=== PATIENT | female | born 1995 | race Hispanic/Latino ===

== ENCOUNTER 2023-11-15 00:32 | Emergency (ER) | payer OTHER ==
[~2023-11-15] VITALS: Ht 157.5 cm; Wt 99.8 kg
[2023-11-15] MEDS: KETOROLAC 15MG/ML VIAL (15MG/ML) IM STA (01:01)
[2023-11-15] MEDS ORDERED: NAPR-1192 PO (01:51)
[2023-11-15 01:57] VITALS: BP 148/69; PULSE 85; RESP 18; O2SAT 99
== END 2023-11-15 01:58 | disposition home or self-care (01) ==
LOC: EDH 00:32
DX: S93.402A Sprain of unspecified ligament of left ankle, initial encounter (principal); X50.1XXA Overexertion from prolonged static or awkward postures, initial encounter; Y93.89 Activity, other specified; Y92.89 Other specified places as the place of occurrence of the external cause; Y99.8 Other external cause status
CPT/HCPCS: 99284; 81025; 73610; 96372; J1885